=== PATIENT | male | born 1965 | race Caucasian/White ===

== ENCOUNTER 2017-03-11 11:15 | Inpatient (IN) | payer MEDICARE, OTHER ==
[~2017-03-11] VITALS: Ht 180.3 cm; Wt 88.9 kg
[~2017-03-11 11:15] MED LIST: ACET-73 PO; ASPI-1169 PO; ATOR40TA PO; CARV6.252 PO; CLOP75TA15 PO; DOCU-141 PO; FOLI0.8T2 PO; FURO80TA85 PO; HYDR-4077 PO; HYDR-548 PO; INSU100V27 SQ; INSU3INS6 SQ; ISOS20TA8 PO; POTA10CA43 PO; SENN8.6T19 PO
--- NOTE | 2017-03-11 11:25 | NUR ---
BB PRRIVATE EMS FROM [facility] FOR RLE SWELLING ESRD- MISSED DIALYSIS TODAY. RR IS EVEN AND UNLABORED WITH NAD NOTED. SKIN IS WARM AND DRY. AWAITING MD FOR EVAL.
--- NOTE | 2017-03-11 13:03 | NUR ---
XRAY IN PROGRESS AT BS.
[2017-03-11] MEDS ORDERED: IV NS 0.9% 500 ML BAG IV ONE (13:30)
[2017-03-11] MEDS ORDERED: IV NS 0.9% 1,000 ML IV PRN (13:44)
[2017-03-11] MEDS: CEFTRIAXONE 1 G in IV D5W 50 ML IV SCH (13:50)
[2017-03-11 13:54] LABS: BASOPHILS # (AUTO) 0.3 /CMM (0.0-0.2); BASOPHILS % (AUTO) 3.2 % (0.0-2.0); EOSINOPHILS % (AUTO) 0.1 % (0.0-6.0); HEMATOCRIT 37 % (39-51); HEMOGLOBIN 12.4 g/dL (13.5-17.5); LYMPHOCYTES % (AUTO) 9.4 % (20.0-44.0); MEAN CORPUSCULAR HEMOGLOBIN 33 PG (26.0-33.0); MEAN CORPUSCULAR HGB CONC 33 g/dl (31.0-36.0); MEAN CORPUSCULAR VOLUME 98 fL (80-96); MONOCYTES # (AUTO) 0.8 /CMM (0.1-1.30); NEUTROPHILS # (AUTO) 8.3 /CMM (1.8-8.9); NEUTROPHILS % (AUTO) 79.3 % (43.0-81.0); PLATELET COUNT (AUTO) 149 /CMM (150-450); RDW COEFFICIENT OF VARIATION 19.7 (11.5-15.0); RED BLOOD CELL COUNT(AUTO) 3.81 MIL/uL (4.5-6.0); WHITE BLOOD COUNT (AUTO) 10.4 K/uL (4.3-11.0)
[2017-03-11] MEDS ORDERED: INSU100I4 SQ (13:56)
[2017-03-11] MEDS ORDERED: LISI-603 PO (13:56)
[2017-03-11] MEDS ORDERED: GEMF600T3 PO (13:56)
[2017-03-11] MEDS ORDERED: OXYC-133 PO (13:56)
[2017-03-11] MEDS ORDERED: INSU100I19 SQ (13:56)
[2017-03-11] MEDS ORDERED: ZOLP10TA2 PO (13:56)
[2017-03-11] MEDS ORDERED: CALC667C6 PO ×2 (13:56)
[2017-03-11] MEDS ORDERED: SEVE0.8P PO (13:56)
[2017-03-11] MEDS ORDERED: CEFTRIAXONE 1GM BAG (ER ONLY) 50 ML IV ONE (13:57)
[2017-03-11] MEDS ORDERED: ACETAMINOPHEN 325 MG TABLET PO PRN (14:00)
[2017-03-11] MEDS ORDERED: Z GUARD REMEDY 2 OZ OINT TP PRN (14:00)
[2017-03-11] MEDS ORDERED: ENOXAPARIN SODIUM 40 MG/0.4 ML DISP.SYRIN SQ SCH (14:00)
[2017-03-11] MEDS ORDERED: INSULIN REGULAR, HUMAN 100 UNIT/ML 3 ML VIAL SQ PRN (14:00)
[2017-03-11] MEDS ORDERED: HYDROCODONE/APAP 5/325MG 1 EACH TABLET PO PRN (14:00)
[2017-03-11] MEDS ORDERED: VANCOMYCIN 1 GM in IV D5W 250 ML IV ONE (14:00)
[2017-03-11] MEDS ORDERED: DEXTROSE 50%-WATER 50 ML DISP.SYRIN IV PRN (14:00)
[2017-03-11] MEDS ORDERED: MAG HYDROX/AL HYDROX/SIMETH 30 ML UDC PO PRN (14:00)
[2017-03-11] MEDS ORDERED: MAGNESIUM HYDROXIDE 30 ML UDC PO PRN (14:00)
[2017-03-11] MEDS ORDERED: ZOLPIDEM TARTRATE 5 MG TABLET PO PRN (14:00)
[2017-03-11 14:04] LABS: CALCIUM, SERUM 9.5 mg/dL (8.5-10.1); POTASSIUM 5.5 mmol/L (3.5-5.1)
[2017-03-11 14:05] LABS: CREATININE 13.3 mg/dL (0.6-1.3)
--- NOTE | 2017-03-11 14:33 | NUR ---
REPORT GIVEN TO KAMRYN BROWN FOR [facility] MS [id number].
[2017-03-11 14:50] VITALS: BP 108/66
--- NOTE | 2017-03-11 14:50 | NUR ---
MS/RN OPENING NOTE RECEIVED PATIENT MEREDITH LOPEZ. ALERT AND ORIENTED X3. RESPIRATION REGULAR AND UNLABORED. DENIES SOB, PAIN AT THIS TIME. SKIN ASSESSMENT DONE. RAC G 20 PATENT. BED LOW AND LOCKED. SIDE RAIL UP X3. VERBAL CUES PROVIDED TO KEEP SAFETY AWARENESS HIGH. WILL CONTINUE TO MONITOR.
[2017-03-11] MEDS ORDERED: FEE PK DOSING 1 MIN EA MC ONE (14:59)
[2017-03-11] MEDS ORDERED: VANCOMYCIN 500 MG in IV D5W 100 ML IV PRN (15:00)
[2017-03-11 16:00] VITALS: BP 112/66
[2017-03-11] MEDS: ISOSORBIDE DINITRATE (20MG) 20 MG TABLET PO SCH (17:00)
[2017-03-11] MEDS: DOCUSATE SODIUM 100 MG CAPSULE PO SCH (17:36)
[2017-03-11] MEDS: BLOOD SUGAR DIAGNOSTIC 1 EACH STRIP IN SCH ×2 (17:36→21:28)
[2017-03-11] MEDS: FUROSEMIDE 40 MG/4 ML VIAL IV SCH ×2 (17:37→23:05)
[2017-03-11] MEDS: HEPARIN SODIUM, PORCINE 5000 UNITS/1 ML VIAL SQ SCH (17:57)
--- NOTE | 2017-03-11 18:55 | NUR ---
MS/RN CLOSING NOTE PATIENT ALERT AND ORIENTED X3. BREATHING UNLABORED AND REGULAR. DENIES SOB, PAIN. IN NO APPARENT DISTRESS. RAC G 20 PATENT AND IV INFUSING WITH NO S/S INFILTRATION. LEFT UPPER ARM DIALYSIS SHUNT POSITIVE FOR BRUIT AND THRILL. BED LOW AND LOCKED. SIDE RAIL UP X3. CALL LIGHT WITHIN REACH. WILL ENDORSE TO NIGH SHIFT.
--- NOTE | 2017-03-11 19:27 | NUR ---
RN OPENING NOTES PT SLEEPING IN BED. NO COMPLAINTS OF PAIN, SOB OR DISTRESS AT THIS TIME. PT HAS A RIGHT AC #20 IV, INTACT AND PATENT. PT HAS A LEFT UPPER ARM AV SHUNT. SAFETY PRECAUTIONS IN PLACE. BED IN LOW, LOCKED POSITION, X2 SIDE RAILS UP CALL LIGHT WITHIN REACH. WILL CONTINUE TO MONITOR.
[2017-03-11 20:00] VITALS: BP 103/56
[2017-03-11] MEDS: hydrALAZINE HCL 50 MG TABLET PO SCH (20:19)
[2017-03-11] MEDS: CARVEDILOL 6.25 MG TABLET PO SCH (20:20)
[2017-03-11] MEDS: INSULIN GLARGINE, 100 UNIT/ML CARTRIDGE SQ SCH (21:29)
[2017-03-11] MEDS: SENNOSIDES 8.6 MG TABLET PO SCH (21:31)
[2017-03-11] MEDS: ATORVASTATIN 40 MG TABLET PO SCH (21:31)
[2017-03-12] MEDS: ONDANSETRON HCL/PF 4 MG/2 ML VIAL IVP PRN ×3 (03:33→17:40)
--- NOTE | 2017-03-12 03:36 | NUR ---
RN NOTES PT HAD EPISODE OF DARK GREEN EMESIS. ADMINISTERED ZOFRAN. WILL CONTINUE TO MONITOR.
--- NOTE | 2017-03-12 03:37 | NUR ---
RN NOTES PT REQUESTED PAIN MEDICATION. EXPLAINED TO PT THAT HE HAD PO PAIN MEDICATION ORDERED. WILL ASSESS PT'S NAUSEA AND VOMITING BEFORE ADMINISTRATION OF PAIN MEDICATION.
[2017-03-12] MEDS: HYDROCODONE/APAP 10/325MG 1 EA TABLET PO PRN ×3 (03:49→17:16)
--- NOTE | 2017-03-12 03:49 | NUR ---
RN NOTES PT CLAIMED LESS NAUSEATED. WILL ADMINISTER PO PRN NORCO 10. WILL CONTINUE TO MONITOR.
[2017-03-12] MEDS: hydrALAZINE HCL 50 MG TABLET PO SCH ×5 (05:00→21:00)
[2017-03-12] MEDS: FUROSEMIDE 40 MG/4 ML VIAL IV SCH ×3 (06:32→17:41)
[2017-03-12] MEDS: HEPARIN SODIUM, PORCINE 5000 UNITS/1 ML VIAL SQ SCH ×2 (06:32→17:17)
[2017-03-12 06:37] LABS: BASOPHILS % (AUTO) 0.1 % (0.0-2.0); EOSINOPHILS # (AUTO) 0.1 /CMM (0.0-0.7); EOSINOPHILS % (AUTO) 0.8 % (0.0-6.0); HEMATOCRIT 39 % (39-51); HEMOGLOBIN 12.9 g/dL (13.5-17.5); LYMPHOCYTES # (AUTO) 0.9 /CMM (0.8-4.8); LYMPHOCYTES % (AUTO) 6.8 % (20.0-44.0); MEAN CORPUSCULAR HEMOGLOBIN 33 PG (26.0-33.0); MEAN CORPUSCULAR HGB CONC 33 g/dl (31.0-36.0); MEAN CORPUSCULAR VOLUME 100 fL (80-96); MONOCYTES # (AUTO) 0.8 /CMM (0.1-1.30); MONOCYTES % (AUTO) 5.8 % (2.0-12.0); NEUTROPHILS # (AUTO) 11.3 /CMM (1.8-8.9); NEUTROPHILS % (AUTO) 86.5 % (43.0-81.0); PLATELET COUNT (AUTO) 171 /CMM (150-450); RDW COEFFICIENT OF VARIATION 20.7 (11.5-15.0); RED BLOOD CELL COUNT(AUTO) 3.94 MIL/uL (4.5-6.0); WHITE BLOOD COUNT (AUTO) 13.1 K/uL (4.3-11.0)
[2017-03-12 06:56] LABS: THYROID STIMULATING HORMONE 4.953 uIU/mL (0.358-3.74)
[2017-03-12 07:04] LABS: CALCIUM, SERUM 9.6 mg/dL (8.5-10.1); MAGNESIUM 2.6 mg/dL (1.8-2.4); POTASSIUM 5.1 mmol/L (3.5-5.1)
[2017-03-12 07:06] LABS: CREATININE 13.3 mg/dL (0.6-1.3)
[2017-03-12 07:13] LABS: PHOSPHORUS 10.5 mg/dL (2.5-4.9)
[2017-03-12] MEDS: BLOOD SUGAR DIAGNOSTIC 1 EACH STRIP IN SCH ×4 (07:18→22:26)
--- NOTE | 2017-03-12 07:22 | NUR ---
RN CLOSING NOTES PT RESTING IN BED. PT HAD 2 EPISODES OF EMESIS OVERNIGHT. BOTH TIME WERE DARK GREEN IN COLOR. PT REFUSED BLOOD PRESSURE MEDICATION. PT HAS A RIGHT AC #20 IV, INTACT AND PATENT. PT HAS A LEFT UPPER ARM AV SHUNT. SAFETY PRECAUTIONS IN PLACE. BED IN LOW, LOCKED POSITION, X2 SIDE RAILS UP CALL LIGHT WITHIN REACH. WILL ENDORSE TO DAY SHIFT NURSE FOR CONTINUITY OF CARE.
--- NOTE | 2017-03-12 08:00 | NUR ---
m/s mary: notes dr. gold at bedside and informed pt re: ble debridement and pt verbalized understanding. consent signed by pt. bedside debridement done by dr. gold (safety grooving machine operator), tolerated well. will continue to monitor. Addendum: 03/12/17 at 1503 by SAY WISE LVN dressing change by
[2017-03-12] MEDS ORDERED: HYDROGEN PEROXIDE 480 ML BOTTLE TP PRN (08:30)
[2017-03-12] MEDS: ISOSORBIDE DINITRATE (20MG) 20 MG TABLET PO SCH ×3 (09:00→16:35)
[2017-03-12] MEDS: CARVEDILOL 6.25 MG TABLET PO SCH ×2 (09:00→21:00)
--- NOTE | 2017-03-12 09:05 | NUR ---
m/s college specialist: notes zofran 4mg ivp given to pt due to episodes of emesis. instructed to call for assistance.
--- NOTE | 2017-03-12 09:35 | NUR ---
m/s mary: notes pt for hd tx today, held b/p meds. dr. rodriguez here and made aware re: pt request for iv pain med with no new order at this time. pt made aware. will continue to monitor. Addendum: 03/12/17 at 0937 by SAY WISE LVN also made aware re: episode of vomiting with liquid greenish in color emesis.
[2017-03-12] MEDS: ASPIRIN 81 MG TAB.CHEW PO SCH (09:53)
[2017-03-12] MEDS: CLOPIDOGREL BISULFATE 75 MG TABLET PO SCH (09:53)
[2017-03-12] MEDS: DOCUSATE SODIUM 100 MG CAPSULE PO SCH ×2 (09:53→17:15)
--- NOTE | 2017-03-12 09:53 | NUR ---
m/s child development assistant: notes c/o 10/10 generalized discomfort. norco 10/325 mg po given as ordered. instructed to call for assistance. will continue. pt refused am care, vital signs, and linen changed.
[2017-03-12] MEDS ORDERED: LORAZEPAM INJ 2 MG/ML VIAL IV ONE (11:00)
--- NOTE | 2017-03-12 11:10 | NUR ---
m/s general teller: notes hd nurse here and preparing pt for hd tx at this time.
--- NOTE | 2017-03-12 12:10 | NUR ---
m/s subsurface augmentee elint operator: notes maura (vehicle service agent, plastic surgeon) called with order to cancel left knee x-ray and do ct jj lower ext with contrast. orders read back and carried out and acknowledged. pt is hd tx at this time. pt made aware and will sign consent after tx.
--- NOTE | 2017-03-12 13:24 | NUR ---
m/s assembler installer structures: notes hd tx in progress. will continue to monitor.
[2017-03-12 13:50] VITALS: BP 96/55
--- NOTE | 2017-03-12 13:50 | NUR ---
m/s airset molder: notes hd completed with 3 liters uf per report. b/p 96/55. instructed to call for assistance. will continue to monitor.
--- NOTE | 2017-03-12 14:00 | NUR ---
m/s business banking manager: notes consent obtained for ct lower ext with contrast at this time, pt verbalized understanding.
[2017-03-12] MEDS: CEFTRIAXONE 1 G in IV D5W 50 ML IV SCH (14:16)
[2017-03-12 16:00] VITALS: BP 127/50
[2017-03-12] MEDS: CADEXOMER IODINE 40 GM TUBE TP SCH (16:40)
[2017-03-12] MEDS: LACTOBACILLUS RHAMNOSUS GG 1 EACH CAP.SPRINK PO SCH (17:15)
--- NOTE | 2017-03-12 17:16 | NUR ---
m/s endocrinologist: notes c/o 8/10 generalized discomfort. norco 10/325 mg po given as ordered. instructed to call for assistance. will continue to monitor.
--- NOTE | 2017-03-12 17:30 | NUR ---
m/s consulting manager: notes bump grader operator at bedside for kub, but pt unable to tolerate lying flat for a couple of minutes. pt also for ct to jj lower ext and here to apple picking supervisor the pt, but per bump grader operator, pt cannot tolerate laying down for kub and will not attempt/try to do ct as ordered. cn aware. maura (bill collector, plastic surgeon) notified and made aware with no new order. will continue to monitor.
--- NOTE | 2017-03-12 17:31 | NUR ---
i SPOKE TO CAROLINA THE CHARGE NURSE. I EXPLAINED TO HER THAT PT CAN NOT LAY DOWN FOR 5 SECONDS FOR A KUB. THUS, UNTILL PT IS STABLIZED AND CAN AT LEAST LAY FOR 30 TO 40 DEGREES WE CAN NOT SCAN THE PT. CAROLINA WILL LET US KNOW.
--- NOTE | 2017-03-12 17:40 | NUR ---
m/s vocational rehabilitation administrator: notes zofran 4mg ivp given by rn due to episodes of emesis. pt remains non-compliant with pm care and linen change. instructed to call for assistance. ice chips provided. will continue to monitor.
--- NOTE | 2017-03-12 19:00 | NUR ---
m/s bottom cager: notes report given to teri (rn) for continuity of care. will continue to monitor.
--- NOTE | 2017-03-12 19:15 | NUR ---
RN OPENING NOTES PT AWAKE AND RESTING IN BED. BROTHER AT BEDSIDE. PER DAY SHIFT NURSE PT CONTINUES TO HAVE DARK GREEN EMESIS. MD AWARE. PT HAD DIALYSIS TODAY WITH AN OUTPUT OF 3L. PT HAS A RAC #20 AND LEFT UPPER ARM AV SHUNT. PER DAY SHIFT NURSE PT HAS REFUSED AM CARE. SAFETY PRECAUTIONS IN PLACE. BED IN LOW, LOCKED POSITION, X2 SIDE RAILS UP, CALL LIGHT WITHIN REACH. WILL CONTINUE TO MONITOR.
[2017-03-12 20:00] VITALS: BP 118/42
[2017-03-12] MEDS: PROMETHAZINE HCL 25 MG/ML AMPUL IM PRN (20:51)
[2017-03-12] MEDS: HYDROMORPHONE 1 MG/1 ML DISP.SYRIN IV PRN (20:52)
[2017-03-12] MEDS: INSULIN GLARGINE, 100 UNIT/ML CARTRIDGE SQ SCH (22:24)
[2017-03-12] MEDS: ATORVASTATIN 40 MG TABLET PO SCH (22:24)
[2017-03-12] MEDS: SENNOSIDES 8.6 MG TABLET PO SCH (22:27)
[2017-03-13] MEDS: FUROSEMIDE 40 MG/4 ML VIAL IV SCH ×4 (00:22→17:41)
[2017-03-13] MEDS: hydrALAZINE HCL 50 MG TABLET PO SCH ×3 (05:00→22:13)
[2017-03-13] MEDS: HEPARIN SODIUM, PORCINE 5000 UNITS/1 ML VIAL SQ SCH ×2 (06:12→17:45)
[2017-03-13] MEDS: BLOOD SUGAR DIAGNOSTIC 1 EACH STRIP IN SCH ×4 (06:34→22:07)
--- NOTE | 2017-03-13 06:35 | NUR ---
RN NOTES PT BLOOD SUGAR 55, WILL GIVE APPLE JUICE AND RECHECK.
--- NOTE | 2017-03-13 06:55 | NUR ---
RN NOTES PT BLOOD SUGAR CONTINUES TO BE 55. WILL ADMINISTER DEXTROSE 50% 50ML AND RECHECK.
--- NOTE | 2017-03-13 07:10 | NUR ---
RN CLOSING NOTES PT BLOOD SUGAR NOW 174. PT HAD ONE EPISODE OF DARK GREEN EMESIS. PT HAS A RAC #20 AND LEFT UPPER ARM AV SHUNT. SAFETY PRECAUTIONS IN PLACE. BED IN LOW, LOCKED POSITION, X2 SIDE RAILS UP, CALL LIGHT WITHIN REACH. WILL ENDORSE TO DAY SHIFT NURSE FOR CONTINUITY OF CARE.
--- NOTE | 2017-03-13 07:10 | NUR ---
MSRN OPENING NOTES. PT RECEIVED A&0X3 SITTING UP IN BED REPORTING SOME NAUSEA- WILL ADMIN PRN PT TOLERATING ROOM AIR AND DENIES SOB, SAO2 WNL AT 95%. PT DENIES PAIN. PT WITH IVC AT L AC INTACT AND SALINE FLUSH PATENT. PT FOR HD TODAY. PT BED IN LOWEST LOCKED POSITION WITH HANDRAILSX2 AND CALL PARKER WITHIN REACH. PT BRIEFED ON TODAY'S POC AND IS WITHOUT CONCERN OR COMPLAINT AT THIS TIME.
--- NOTE | 2017-03-13 07:20 | NUR ---
RN NOTES PT BLOOD SUGAR CURRENTLY 174.
[2017-03-13 08:00] VITALS: BP 98/58
--- NOTE | 2017-03-13 08:20 | NUR ---
MSRN - PT WITH N&V, WITH APPROX. 1000ML EMESIS, GREEN. PT ENCOURAGED TO SIP WATER AND AVOID DRINKING COKE.
[2017-03-13] MEDS: ONDANSETRON HCL/PF 4 MG/2 ML VIAL IVP PRN ×2 (08:42→15:58)
[2017-03-13] MEDS: CARVEDILOL 6.25 MG TABLET PO SCH ×2 (09:00→22:12)
[2017-03-13] MEDS: ISOSORBIDE DINITRATE (20MG) 20 MG TABLET PO SCH ×3 (09:00→17:00)
--- NOTE | 2017-03-13 09:00 | NUR ---
MSRN - PT REMAINS WITH N&V DESPITE PRN ADMIN. PT WITH APPROX. 800ML EMESIS, GREEN. PT AGAIN ENCOURAGED TO STOP DRINKING UNTIL N&V RESOLVES. PT SYSTOLIC 98, MD AWARE. MD REQUESTING REGLAN 10MG IV Q8 PRN, ORDER PLACED.
[2017-03-13] MEDS: DOCUSATE SODIUM 100 MG CAPSULE PO SCH ×2 (09:38→17:40)
[2017-03-13] MEDS: LACTOBACILLUS RHAMNOSUS GG 1 EACH CAP.SPRINK PO SCH ×2 (09:38→17:40)
[2017-03-13] MEDS: CLOPIDOGREL BISULFATE 75 MG TABLET PO SCH (09:38)
[2017-03-13] MEDS: ASPIRIN 81 MG TAB.CHEW PO SCH (09:38)
--- NOTE | 2017-03-13 11:00 | NUR ---
MSRN- PT REFUSING WOUND CARE AT THIS TIME.
[2017-03-13] MEDS ORDERED: METOCLOPRAMIDE HCL 10 MG/2 ML VIAL IV PRN (11:30)
[2017-03-13] MEDS: HYDROMORPHONE 1 MG/1 ML DISP.SYRIN IV PRN ×3 (11:30→20:30)
[2017-03-13] MEDS: PROMETHAZINE HCL 25 MG/ML AMPUL IM PRN (13:31)
[2017-03-13] MEDS: SEVELAMER CARBONATE 800 MG TABLET PO SCH ×2 (13:32→17:40)
[2017-03-13] MEDS: CEFTRIAXONE 1 G in IV D5W 50 ML IV SCH (13:37)
--- NOTE | 2017-03-13 14:43 | NUR ---
WOUND CARE CONSULT WOUND CARE RECEIVED CONSULT. WOUND CARE WILL DEFER TO SURGICAL TEAM THEY ARE FOLLOWING. THERE ARE NOTED TREATMENT ORDERS IN PLACE. PATIENT WITH GIANA AT 13, ALL PRESSURE ULCER PREVENTION MEASURES NOTED TO BE IN PLACE AT THIS TIME. ALL DISCUSSED WITH NURSING STAFF. Addendum: 03/13/17 at 1445 by TANIA OWUSU WNDNU [facility]
[2017-03-13 16:00] VITALS: BP_SYST 109; BP_SYST 91; BP_DIAS 58; BP_DIAS 80
--- NOTE | 2017-03-13 16:24 | NUR ---
MSRN- PT AGAIN REFUSING WOUND CARE R/T TO PAIN, N&V. PRN'S ADMINISTERED PRIOR TO WOUND CARE. L STUMP WOUND CARE AND BUTTOCKS/GROIN CARE COMPLETED. PT REFUSING R LEG CARE. WILL ENDORSE TO NIGHT NURSE.
[2017-03-13] MEDS: CADEXOMER IODINE 40 GM TUBE TP SCH (16:29)
--- NOTE | 2017-03-13 18:57 | NUR ---
MSRN CLOSING NOTES. PT REMAINS A&0X3. PT TOLERATING ROOM AIR. PT REPORTING BI.LAT LOWER EXTREMITY AND GENERALIZED PAIN CURRENTLY WELL CONTROLLED. PT WITH SIGNIFICANT N&V THROUGHOUT SHIFT, CURRENTLY WITHOUT EMESIS. PT REFUSED WOUND CARE MULTIPLE TIMES BUT WAS ABLE TO COMPLETE SOME, R LE REMAINS, WILL ENDORSE TO NIGHT NURSE. PT WITH IVC AT R AC INTACT AND SL. PT BGL 86 AT 1700, PT DINER PO INTAKE LOW, WILL ENDORSE TO NIGHT NURSE. PT BED IN LOWEST LOCKED POSITION WITH HANDRAILSX4 AND CALL PARKER WITHIN REACH. PT IS WITHOUT CONCERN OR COMPLAINT AT THIS TIME.
--- NOTE | 2017-03-13 19:25 | NUR ---
RN INITIAL NOTES RECEIVED PT SITTING UPRIGHT IN BED. A/O X2-3, RESPIRATIONS ARE EVEN AND UNLABORED, NOT IN ANY ACUTE DISTRESS NOTED. C/O PAIN 8/10 TO RLE. PERIPHERAL IV TO RAC INTACT AND PATENT, DRESSING NOTED WITH DRY BLOOD AND WILL CONTINUE TO MONITOR. NO S/SX OF INFILTRATION NOTED. WILL CONTINUE TO MONITOR THROUGHOUT SHIFT. INSTRUCTED PT TO USE CALL LIGHT WHEN ASSISTANCE IS NEEDED, CALL LIGHT IS LEFT WITHIN REACH. BED IS LOCKED AND ITS LOWEST POSITION.
[2017-03-13 20:00] VITALS: BP 121/69
--- NOTE | 2017-03-13 20:30 | NUR ---
RN NOTES ADMINISTERED DILAUDID 1MG IV FOR PL 8/10 TO RLE. BP 121/69 P78 R18 T98.1 SPO2 96%. WILL MONITOR FOR EFFECTIVENESS. OFFERED TO CHANGE DRESSING TO RLE. PT REFUSED. EXPLAINED THE RISKS AND BENEFITS X3, PT STILL NOTED WITH REFUSAL. HONORED PT'S DIGNITY AND THE RIGHTS TO REFUSE. WILL MONITOR FOR ANY SIGNIFICANT CHANGES.
[2017-03-13] MEDS: INSULIN GLARGINE, 100 UNIT/ML CARTRIDGE SQ SCH (22:08)
[2017-03-13] MEDS: SENNOSIDES 8.6 MG TABLET PO SCH (22:12)
[2017-03-13] MEDS: ATORVASTATIN 40 MG TABLET PO SCH (22:12)
[2017-03-13 22:13] VITALS: BP 121/69
--- NOTE | 2017-03-13 23:30 | NUR ---
RN Notes Pt stated he needed help being repositioned. assisted pt to reposition. pt denies any pain at this time. asked if dressing to rle can be changed, pt refused. will continue to monitor for any significant changes.
[2017-03-14] MEDS ORDERED: SODIUM BICARBONATE SYR 50 MEQ/50 ML DISP.SYRIN IV ONE (00:54)
[2017-03-14] MEDS ORDERED: CALCIUM CHLORIDE 1,000 MG/10 ML DISP.SYRIN IV ONE (00:54)
[2017-03-14] MEDS ORDERED: FEE EMEERGENCY 1 MIN EA MC ONE (00:54)
[2017-03-14] MEDS ORDERED: EPINEPHRINE (1:10,000) SYRINGE 1 MG/10 ML DISP.SYRIN IVP ONE (00:54)
[2017-03-14] MEDS ORDERED: DEXTROSE 50%-WATER 50 ML DISP.SYRIN IV ONE (00:54)
--- NOTE | 2017-03-14 01:46 | NUR ---
RN Notes 1234 Found the pt unresponsive. Immediately called for help, azul malave was paged. Pt is full code. CPR was initiated. Azul malave team came and took over. Vital signs were unappreciated. Code was ended at 1255. Dr. Valdivia pronounced pt 1255. [address] Fonseca notified with okay to sign. Post-Mortem care provided. 0110 Next of abhijit Gusman called, straight to voicemail and left message. 0112 Called [employer], spoke w/ Chmea, and provided a case # [id number]. 0125 Called Next of Abhijit Gusman, straight to voicemail and left a message. Addendum: 03/14/17 at 0443 by PAULA CAT RN correction to RN Notes Time correction: 0034 found pt unresponsive. [address] valdivia pronounced pt at 0055.
--- NOTE | 2017-03-14 02:02 | NUR ---
RN NOTES 0202 Called Alexa Gusman,next of kin, went straight to voicemail and left a message.
--- NOTE | 2017-03-14 03:30 | NUR ---
RN NOTES 0330 CALLED NEXT OF KIN, LINA ANNE, WENT STRAIGHT TO VOICEMAIL AND LEFT A MESSAGE. WILL CONTINUE TO TRY.
--- NOTE | 2017-03-14 04:15 | NUR ---
RN NOTES Called next of kin, Alexa Uzma, which was the only number found in pt's chart. No answer and left a message.
--- NOTE | 2017-03-14 04:20 | NUR ---
RN NOTES Body was gently taken to the morgue with primary RN, INSPECTOR BARREL and 3 security staff. All belongings are with the body and valuables are with house nurse.
--- NOTE | 2017-03-17 10:15 | NUR ---
DAVINA was consulted by Nursing correctional supervisor lieutenant Alexa to investigate regarding a POA that had pt's friend Peter Brower as that assigned POA. However, the POA was signed by jefe when pt. was at [facility] on 03/12/17. DAVINA contacted pt's nursing facility [facility] and spoke to DAVINA Arteaga to inquire if pt. had any family. Jenni informed SW that pt. had a daughter who use to come visit pt. occasionally but she didn't have contact information. Jenni informed SW she will have the other SW [place] contact DAVINA as she is not in the facility at this time. DAVINA then contacted pt's friend Junior Cruz and informed him of pt's . DAVINA offered emotional support and her condolence since pt. did not know of pt's passing. Junior did inform SW that pt. does have a daughter and he will try to get her information and call SW back. DAVINA inquired with Junior if he knew of Peter Brower. Junior states that he is a friend to Jonathan and will contact him and have him call DAVINA as well.
--- NOTE | 2017-03-17 12:26 | NUR ---
DAVINA received a call from Nursing Film Coater Alexa informing SW that pt's friend Peter Perez, pt's daughter Shirin and her mother Alexa Gusman are here to claim pt's belongings. DAVINA met with Peter, the daughter and Alexa and informed them that she would have to speak with the jefe Daigle Lanedelfina to confirm that he did come to the hospital for the POA and that pt. was alert and oriented when the POA was completed and signed. DAVINA made a copy of pt's friend/POA Peter Perez's seasonal driver's license and a copy of pt's daughter shirin's DL for future reference and to have in pt's file. Peter informed SW he will find the [facility]'s contact number and call SW back. DAVINA called [facility] social welfare clerk's office to verify jefe if the [facility] (#[id number]) was valid. According the [facility] social welfare clerk's office the jefe is valid and [facility]'s address is [address] [place] [address]. [place] [address]. However, there is no contact information. DAVINA received a call back from Peter Perez who gave SW the contact number to public address system installer Pilo Llanesmirtadelfina. DAVINA and nurse case management Naveen contacted jefe Pilo Merino who informed DAVINA and Naveen that pt. was alert and oriented on 03/12/2017 when he came to [facility] to notarize the Power of Plastics Heat Welder with Peter Perez as being present too. After speaking with Pilo Merino and confirming that pt. was alert and oriented and made the decision to appoint Peter Perez as the Power of Plastics Heat Welder, DAVINA informed nursing supervisor electronics inspection of the aforementioned information. DAVINA called Peter and informed him that she had confirmed with the jefe Merino and he can come back to [facility] and speak to nursing supervisor electronics inspection regarding the belongings. Mello Carpio's Alexa Gusman Peter Perez
== END 2017-03-14 00:55 | disposition expired | DRG 463 ==
LOC: ER 11:17 → MED 14:24
PROC: 0JBN0ZZ Excision of Right Lower Leg Subcutaneous Tissue and Fascia, Open Approach (ICD-10-PCS; principal; 2017-03-12)
PROC: 5A2204Z Restoration of Cardiac Rhythm, Single (ICD-10-PCS; 2017-03-14)
DX: T87.44 Infection of amputation stump, left lower extremity (principal); N18.6 End stage renal disease; I13.2 Hypertensive heart and chronic kidney disease with heart failure and with stage 5 chronic kidney disease, or end stage renal disease; L89.312 Pressure ulcer of right buttock, stage 2; E11.22 Type 2 diabetes mellitus with diabetic chronic kidney disease; E11.42 Type 2 diabetes mellitus with diabetic polyneuropathy; I42.9 Cardiomyopathy, unspecified; L89.322 Pressure ulcer of left buttock, stage 2; E83.39 Other disorders of phosphorus metabolism; L03.115 Cellulitis of right lower limb; L97.209 Non-pressure chronic ulcer of unspecified calf with unspecified severity; E11.51 Type 2 diabetes mellitus with diabetic peripheral angiopathy without gangrene; I50.9 Heart failure, unspecified; K21.9 Gastro-esophageal reflux disease without esophagitis; I25.10 Atherosclerotic heart disease of native coronary artery without angina pectoris; Z99.2 Dependence on renal dialysis; E78.5 Hyperlipidemia, unspecified; Z89.512 Acquired absence of left leg below knee; D64.9 Anemia, unspecified; E11.621 Type 2 diabetes mellitus with foot ulcer; E11.622 Type 2 diabetes mellitus with other skin ulcer; J44.9 Chronic obstructive pulmonary disease, unspecified; L97.519 Non-pressure chronic ulcer of other part of right foot with unspecified severity; Z91.11 Patient's noncompliance with dietary regimen; Z79.899 Other long term (current) drug therapy; Z79.82 Long term (current) use of aspirin; Z79.4 Long term (current) use of insulin; I87.8 Other specified disorders of veins; F41.9 Anxiety disorder, unspecified; G47.00 Insomnia, unspecified; Z91.02 Food additives allergy status; I25.119 Atherosclerotic heart disease of native coronary artery with unspecified angina pectoris; L30.4 Erythema intertrigo; L89.010 Pressure ulcer of right elbow, unstageable; Y83.5 Amputation of limb(s) as the cause of abnormal reaction of the patient, or of later complication, without mention of misadventure at the time of the procedure; Y92.129 Unspecified place in nursing home as the place of occurrence of the external cause
CPT/HCPCS: 36415; 73564-TC; 74018; 80048-TC; 80061-TC; 80202-TC; 82962-TC; 83735-TC; 84100-TC; 84443-TC; 85025-TC; 87081-TC; 90935-TC; A4606; A6402; A6403; J0171; J0696; J1170; J1644; J1815; J1940; J2060; J2405; J2550; J3370; J3490; J7030; J7040; J7060; Z7610